=== PATIENT | male | born 1965 | race African-American/Black ===

== ENCOUNTER 2019-06-29 17:18 | Emergency (ER) | payer BC ==
[2019-06-29 17:41] VITALS: BMI 33.2
--- NOTE | 2019-06-29 17:52 | PDOC ---
Rapid Medical Evaluation Chief Complaint: Head/Neck problem Time Seen by Provider: 06/29/19 17:38 Medical Evaluation: 06/29/19 17:38 This patient had a brief in-person evaluation in triage cc: dizziness x 1/2 hour HPI: NAD even and unlabored breathing Neuro: no apparent facial drooping left arm appears weaker than right orders: ekg, labs, fingerstic This patient will proceed to ED for further evaluation. Discharge Disposition - Diagnosis Dizziness - Referrals - Patient Instructions - Post Discharge Activity
[2019-06-29 18:33] LABS: BASO % 0.8 % (0-2.0); EOS % 1.6 % (0-4.5); HEMATOCRIT 45.6 % (35.4-49); HEMOGLOBIN 15.3 GM/dL (11.7-16.9); LYMPH % 23.9 % (8-40); MCH 28.1 pg (25.7-33.7); MCHC 33.5 g/dl (32.0-35.9); MEAN CELL VOLUME 83.7 fl (80-96); MEAN PLT VOLUME 8.4 fl (7.5-11.1); MONO % 7.3 % (3.8-10.2); NEUT % 66.4 % (42.8-82.8); PLATELET COUNT 142 K/MM3 (134-434); RBC 5.45 M/mm3 (4.00-5.60); RDW 15.3 % (11.9-15.9); WHITE BLOOD COUNT 4.3 K/mm3 (4.0-10.0)
--- NOTE | 2019-06-29 18:38 | PDOC ---
History of Present Illness - General Chief Complaint: Head/Neck problem Stated Complaint: DIZZY/L/NUMBNESS TO FACE/NUMBNESS/L/ARM Time Seen by Provider: 06/29/19 17:38 - History of Present Illness Initial Comments: 06/29/19 20:51 54yo M hx cluster headaches presents from home c/o intermittent episodes of numbness/tingling of L face and L arm x2wks. Pt states he's never had anything like this before. No FHx of early strokes or similar sx. Denies falls, trauma, heavy exertion, or any other inciting event. Pt c/o a knot/pain in the muscle in the back of his L shoulder, that corresponds with the numbness/tingling. Pt states the numbness/tingling feels like a pinched nerve. The episodes have gradual onset, last 20-45 min, resolve on own, nothing makes worse or better, occur sporadically at different times, less than once per day. Endorses light- headedness as well, but denies vertigo. States his L eyelid also sometimes feels heavy, but denies any facial droop. Pt is very worried about having a stroke. Pt went to ED at [facility] on and had an EKG and blood done, but no imaging. Denies F/C, N/V, CP, SOB, abdominal pain, neck pain, back pain, vision changes, headache, confusion, difficulty speaking or swallowing, weakness. States he has cluster headaches for which he takes sumatriptan when they occur, last one 2 days ago, but pt states it is nothing like this. Pt states the episode that caused him to come to the ED today resolved after 45 minutes. Pt denies any complaints at this time. PCP - [facility] - Suni Goel: [phone] Past History - Past Medical History Allergies/Adverse Reactions: Allergies Allergy/AdvReac Type Severity Reaction Status Date / Time Penicillins Allergy Verified 06/29/19 17:42 Home Medications: Ambulatory Orders NK [No Known Home Medication] 06/29/19 COPD: No HTN: Yes Other medical history: cluster headaches - Suicide/Smoking/Psychosocial Hx Smoking History: Never smoked Information on smoking cessation initiated: No Hx Alcohol Use: No Drug/Substance Use Hx: No Review of Systems - Review of Systems Comments:: 06/29/19 20:32 Constitutional: Negative for chills, fever, fatigue. HENT: Negative for sore throat, rhinorrhea, congestion. Eyes: Negative for visual disturbance. Respiratory: Negative for shortness of breath, cough, and wheezing. Cardiovascular: Negative for chest pain, palpitations, and leg swelling. Gastrointestinal: Negative for abdominal pain, blood in stool, constipation, diarrhea, nausea, and vomiting. Genitourinary: Negative for dysuria, flank pain, and hematuria. Musculoskeletal: Positive for knot in L posterior shoulder. Negative for myalgias, back pain, and neck pain. Skin: Negative for rash. Neurological: Positive for light-headedness and numbness of L side of face and L arm. Negative for vertigo, dizziness, syncope, weakness, and headache. Psychiatric/Behavioral: Negative for behavioral problems and confusion. *Physical Exam - Vital Signs Last Vital Signs Temp Pulse Resp BP Pulse Ox 99.6 F 89 19 142/88 99 06/29/19 17:38 06/29/19 17:38 06/29/19 17:38 06/29/19 17:38 06/29/19 18:16 - Physical Exam Comments: 06/29/19 20:50 Gen: Alert, NAD, comfortable-appearing. HEENT: PERRL, EOMI, MMM, NCAT. No conjunctival pallor. Sclera are non-icteric. Oropharynx is clear. CV: Regular rate and rhythm. No murmurs, rubs, or gallops. PULM: No resp distress. CTAB, no wheezes, rales, or rhonchi. ABD: soft, NT/ND, no rebound tenderness or guarding, no CVA tenderness. BACK: No TTP of c/t/l-spine. No step-offs or deformities. +tenderness to deep palpation of point between L deltoid and L trapezius muscle. MSK: No bony deformities. 2+ pulses in all extremities. NEURO: AAOx3. PERRL. CN 2-12 intact. 5/5 strength in all extremities. Sensation to light touch intact in all extremities. No pronator drift. No dysmetria. No dysdiadochokinesia. No abnormal nystagmus. No skew deviation. Normal gait. EXTREMITIES: No cyanosis. No clubbing. No edema. No calf tenderness. PSYCH: Normal mood and thought pattern. SKIN: Warm and dry. Normal capillary refill. No rashes. No jaundice. Heart Score/ECG Review - ECG Impressions Comment:: 06/29/19 20:31 NSR, 79bpm, normal axis, no STEs/TWIs ED Treatment Course - LABORATORY CBC & Chemistry Diagram: 06/29/19 18:10 06/29/19 18:10 Medical Decision Making - Medical Decision Making 06/29/19 20:57 54yo M hx cluster headaches presents from home c/o intermittent episodes of numbness/tingling of L face and L arm x2wks. Hemodynamically stable, neurologically intact, NIH 0, currently denies any sx, tenderness to deep palpation of intersection of L trapezius and L deltoid. PCP - [place] [facility]ist - Suni Tavarez: [phone] Intermittent tingling associated with "knot" in posterior shoulder most consistent with radiculopathy. Dr. Tavarez called with no response or after- hours service. NIH score 0, lack of neurologic deficits, and lack of RFs for stroke make CVA/TIA of very low concern, but due to pt's anxiety and 2nd ED visit, will obtain CTH to r/o large infarct or bleed. Also consider and r/o metabolic derangements or anemia with labs. Although dissimilar from prior cluster headaches, sx could also be new manifestation of cluster headaches - no indication for tx at this time since pt's sx resolved. -CBC, CMP, Coags -CTH -Dispo: pending w/u, d/c home with neurology f/u 06/29/19 21:01 Labs reviewed. No concerning findings. 06/29/19 22:35 CTH: Possible small 0.4cm infarct of indeterminate age within inferomedial aspect of R temporal lobe. Will order MRI. Pt informed and consents. Neuro Dr. Jauregui consulted - agrees with MRI and admission. States will come see pt. 06/29/19 23:[address] OLSON. Pending MRI > adm. *DC/Admit/Observation/Transfer Diagnosis at time of Disposition: Dizziness, Tingling of left upper extremity and left side of face - Discharge Dispostion Condition at time of disposition: Stable Decision to Admit order: Yes - Referrals Referrals: ON STAFF,NOT [Primary Care Provider] - - Patient Instructions - Post Discharge Activity
[2019-06-29 18:46] LABS: INR 1.18 (0.83-1.09)
[2019-06-29 19:00] LABS: ALBUMIN 4.3 g/dl (3.4-5.0); BILIRUBIN,TOTAL 1.4 mg/dL (0.2-1); BLOOD UREA NITROGEN 7.5 mg/dL (7-18); CALCIUM 9.4 mg/dL (8.5-10.1); CREATININE 0.9 mg/dL (0.55-1.3); POTASSIUM 3.8 mmol/L (3.5-5.1); TOT PROT 7.3 g/dl (6.4-8.2)
--- NOTE | 2019-06-29 20:17 | PDOC ---
Documentation entered by Kami Foy SCRIBE, acting as scribe for Jamia Vora MD. Jamia Vora MD: This documentation has been prepared by the Law arauz Brenda, SCRIBE, under my direction and personally reviewed by me in its entirety. I confirm that the documentation accurately reflects all work, treatment, procedures, and medical decision making performed by me. Attending Attestation - Resident Resident Name: Adrienne Watts - ED Attending Attestation I have performed the following: I have examined & evaluated the patient, The case was reviewed & discussed with the resident, I agree w/resident's findings & plan, Exceptions are as noted - HPI HPI: 06/29/19 20:04 The patient is a 54 year old male, with a significant PMH of HTN and cluster headaches who presents to the emergency department for half an hour of dizziness. The patient also endorses left arm weakness with numbing and tingling , along with left-sided facial numbness. The patient denies chest pain, shortness of breath. Denies fever, chills, nausea , vomiting, diarrhea and constipation. Denies dysuria, frequency, urgency and hematuria. Allergies: Penicillins Social history: Denies any tobacco use, alcohol use or illicit drug use. PCP: Not on staff - Physicial Exam PE: 06/29/19 23:24 wnwd 54 yo male with c/o left arm numbness ,tingling over past 2 weeks head ncat eyes perle eomi neck no jvd lungs cta b/l cvs [id number] abd nontender extremities no tenderenss, no deformities skin warm and dry neuro axox3,motor stress 5/5 b/l, no ataxia,no slurred speech no facial droop - Medical Decision Making 06/30/19 00:19 54 yo male has had several weeks of intermittent numbness,tingling on left side of face and arm for several seeks. He has been taking imitrex for his headaches currently he has no gross focal neuro deficits 06/30/19 00:21 Pt seen by neurology , Dr Jauregui saw him in the emergency dept and recommends depakote 500mg po BID for 2 weeks and this pt is to call his regular neurologist for further treatment of his cluster headaches 06/30/19 00:24 MRI of brain no infarct, no masses,no hydrocephalus pt discharged home and will follow up with his own neurologist imp: chronic headaches 06/30/19 00:53
--- NOTE | 2019-06-29 23:41 | PDOC ---
*Physical Exam - Vital Signs Last Vital Signs Temp Pulse Resp BP Pulse Ox 99.2 F 83 18 124/74 98 06/29/19 19:41 06/29/19 19:41 06/29/19 19:41 06/29/19 19:41 06/29/19 19:41 ED Treatment Course - LABORATORY CBC & Chemistry Diagram: 06/29/19 18:10 06/29/19 18:10 - ADDITIONAL ORDERS Additional order review: Laboratory Results 06/29/19 06/29/19 06/29/19 18:10 18:10 18:10 PT with INR 14.00 H INR 1.18 H PTT (Actin FS) Sodium 139 Potassium 3.8 Chloride 105 Carbon Dioxide 26 Anion Gap 7 L BUN 7.5 Creatinine 0.9 Est GFR (CKD-EPI)AfAm 111.83 Est GFR (CKD-EPI)NonAf 96.49 Random Glucose 88 Calcium 9.4 Total Bilirubin 1.4 H AST 23 ALT 25 Alkaline Phosphatase 89 Troponin I < 0.02 Total Protein 7.3 Albumin 4.3 06/29/19 18:10 PT with INR INR PTT (Actin FS) 34.1 Sodium Potassium Chloride Carbon Dioxide Anion Gap BUN Creatinine Est GFR (CKD-EPI)AfAm Est GFR (CKD-EPI)NonAf Random Glucose Calcium Total Bilirubin AST ALT Alkaline Phosphatase Troponin I Total Protein Albumin 06/29/19 18:10 RBC 5.45 MCV 83.7 MCHC 33.5 RDW 15.3 MPV 8.4 Neutrophils % 66.4 Lymphocytes % 23.9 Monocytes % 7.3 Eosinophils % 1.6 Basophils % 0.8 Medical Decision Making - Medical Decision Making 06/29/19 23:38 Signed out to me by Dr. Watts. Patient is a 54M with PMH cluster headaches here for 2 weeks intermittent L mouth and LUE numbness/tingling. Patient got labs done and a CT head that shows 0.4mm infarct inconsistent with L -sided pathology. Discussed with Dr. Jauregui, would like to admit for further evaluation for CVA w/ u. MRI done, pending read. 06/29/19 23:38 Dr. Jauregui recommends home with Depakote instead of triptan since this might be cause of sx. MRI negative for pathology. *DC/Admit/Observation/Transfer Diagnosis at time of Disposition: Dizziness, Tingling of left upper extremity and left side of face - Discharge Dispostion Disposition: HOME Condition at time of disposition: Stable - Prescriptions Prescriptions: Divalproex [Depakote -] 500 mg PO BID 14 Days #28 tablet.ec - Referrals Referrals: ON STAFF,NOT [Primary Care Provider] - - Patient Instructions Printed Discharge Instructions: DI for Numbness/tingling Additional Instructions: Today you were evaluated for numbness and tingling in your face and arm. We performed a CT scan of your head that was concerning for a stroke, but we also performed an MRI of your head, a more accurate test, that does not show any stroke or other immediately life-threatening problem. At this time, we also got labs that were all normal. Please return to see your primary doctor in the next 3 days. We have also included a referral to Dr. Jauregui, a neurologist, who believes that the sumitriptan may be a contributing factor to your symptoms. Please make an appointment to see him or your home neurologist in the next week for further evaluation of your issue. We also have sent a prescription for Depakote for your headaches: please take one 500mg pill twice a day for the next 2 weeks. If you experience worsening numbness and tingling, pain in your neck or back, become unable to speak or move your mouth, become unable to move your arms or legs, become unable to walk, chest pain, SOB, or have any other new or concerning symptoms, please return to the closest emergency room. - Post Discharge Activity
--- NOTE | 2019-06-29 23:50 | CON.NEURO ---
Consult Consult Specialty:: NEUROLOGY-[facility] - History of Present Illness History of Present Illness: 54yo M hx cluster headaches presents from home c/o intermittent episodes of numbness/tingling of L face and L arm x2wks. Pt states he's never had anything like this before. No FHx of early strokes or similar sx. Denies falls, trauma, heavy exertion, or any other inciting event. Pt c/o a knot/pain in the muscle in the back of his L shoulder, that corresponds with the numbness/tingling. Pt states the numbness/tingling feels like a pinched nerve. The episodes have gradual onset, last 20-45 min, resolve on own, nothing makes worse or better, occur sporadically at different times, less than once per day. Endorses light- headedness as well, but denies vertigo. States his L eyelid also sometimes feels heavy, but denies any facial droop. Pt is very worried about having a stroke. Pt went to ED at [facility] on and had an EKG and blood done, but no imaging. Denies F/C, N/V, CP, SOB, abdominal pain, neck pain, back pain, vision changes, headache, confusion, difficulty speaking or swallowing, weakness. States he has cluster headaches for which he takes sumatriptan when they occur, last one 2 days ago, but pt states it is nothing like this. Pt states the episode that caused him to come to the ED today resolved after 45 minutes. Pt denies any complaints at this time. CT head reported with "possible 0.4cm right inferomedial temporal infarct. Pt. reports his cluster period recurred a week ago with his typical left periorbital headaches, now numbness resolved, yesterday his BP was high, he has been using Imitrex injections and tabs in last few days. - Alcohol/Substance Use Hx Alcohol Use: No - Smoking History Smoking history: Never smoked Home Medications - Allergies Allergies/Adverse Reactions: Allergies Allergy/AdvReac Type Severity Reaction Status Date / Time Penicillins Allergy Verified 06/29/19 17:42 - Home Medications Home Medications: Ambulatory Orders NK [No Known Home Medication] 06/29/19 Physical Exam-Neuro Vital Signs: Vital Signs Temperature 99.2 F 06/29/19 19:41 Pulse Rate 83 06/29/19 19:41 Respiratory Rate 18 06/29/19 19:41 Blood Pressure 124/74 06/29/19 19:41 O2 Sat by Pulse Oximetry (%) 98 06/29/19 19:41 Labs: CBC, BMP 06/29/19 18:10 06/29/19 18:10 INR, PTT INR 1.18 (0.83-1.09) H 06/29/19 18:10 - Neuro Exam DTR's: 2+ Left Bicep, 2+ Right Bicep, 2+ Left Tricep, 2+ Right Tricep, 2+ Left Brachioradialis, 2+ Right Brachioradialis, 2+ Left Achilles, 2+ Right Achilles Motor Strength: 5/5: Left Arm, Right Arm, Left Leg, Right Leg Gait: Normal Imaging - Results MRI: Report Reviewed (without evid. of acute infarct) Assessment/Plan Pt. with cluster BARAJAS, now with , in last few days elevated BP and resolved left face/arm diminished sensation.Sensory symptoms ? due to elevated BP. No evid.of CVA Suggest: Place pt. on Depakote 500mg bid for cluster BARAJAS prophylaxis. He will f/u with his neurologist Dr. huerta in the [place].
[2019-06-30 01:16] VITALS: BP 142/95; PULSE 74; TEMP 98.7
--- NOTE | 2019-06-30 09:29 | EKG ---
Test Reason : Blood Pressure : / mmHG Vent. Rate : 079 BPM Atrial Rate : 079 BPM P-R Int : 146 ms QRS Dur : 086 ms QT Int : 380 ms P-R-T Axes : 031 -08 016 degrees QTc Int : 435 ms NORMAL SINUS RHYTHM MINIMAL VOLTAGE CRITERIA FOR LVH, MAY BE NORMAL VARIANT BORDERLINE ECG NO PREVIOUS ECGS AVAILABLE Confirmed by Aaron Sarah MD ([id number]) on 06/30/2019 9:29:03 AM Referred By: Confirmed By:Aaron Sarah MD
== END 2019-06-30 01:14 | disposition home or self-care (01) ==
LOC: JER 17:18
DX: G44.009 Cluster headache syndrome, unspecified, not intractable (principal); I10 Essential (primary) hypertension
CPT/HCPCS: 36415; 70450-TC; 70551-TC; 80053; 84484; 85025; 85610; 85730; 93005; 93010; 99284-25